=== PATIENT | male | born 1965 | race Caucasian/White ===

== ENCOUNTER 2019-01-17 23:55 | Inpatient (IN) | payer OTHER ==
[~2019-01-17] VITALS: Ht 172.7 cm; Wt 164.4 kg
[2019-01-17 23:59] VITALS: Ht 172.7 cm; Wt 164.4 kg
[2019-01-18 00:29] LABS: PLATELET COUNT 265 x10^3mcL (130-400)
[2019-01-18 00:39] LABS: CALCIUM 8.4 mg/dL (8.5-10.1); CARBON DIOXIDE 28.2 mmol/L (21-32); CHLORIDE SERUM 101 mmol/L (98-107); CREATININE SERUM 0.9 mg/dL (0.7-1.3); GFR1 > 60 mL/min; GLUCOSE SERUM 114 mg/dL (74-106); POTASSIUM SERUM 3.8 mmol/L (3.5-5.1); SODIUM SERUM 139 mmol/L (136-145)
[2019-01-18 00:44] LABS: ALBUMIN 3.4 g/dL (3.4-5.0); ALKALINE PHOSPHATASE 141 U/L (46-116); ALT/SGPT 182 U/L (16-63); AST/SGOT 62 U/L (15-37); BILIRUBIN TOTAL 1.4 mg/dL (0.20-1.00); LIPASE 232 IU/L (73-393); TOTAL PROTEIN, SERUM 7.2 g/dL (6.4-8.2)
[2019-01-18 00:56] LABS: RED CELL DISTRIBUTION WIDTH 18.1 % (11.5-14.5)
[2019-01-18] MEDS ORDERED: NOR10T PO (01:06)
[2019-01-18] MEDS ORDERED: DICLOFENAC SODI75 MG PO (01:06)
[2019-01-18] MEDS ORDERED: NEU300 PO (01:07)
[2019-01-18] MEDS ORDERED: GABAPENTIN100 M2 PO (01:08)
[2019-01-18 01:57] LABS: CHOLESTEROL/HDL RATIO 14.2; PHOSPHOROUS 3.4 mg/dL (2.5-4.9)
[2019-01-18 02:17] VITALS: BP 143/84
[2019-01-18 03:13] VITALS: BP 143/84
[2019-01-18 08:39] VITALS: BP 134/92
[2019-01-18 09:13] LABS: CALCIUM 8.6 mg/dL (8.5-10.1); CARBON DIOXIDE 27.3 mmol/L (21-32); CHLORIDE SERUM 104 mmol/L (98-107); CREATININE SERUM 0.8 mg/dL (0.7-1.3); GFR1 > 60 mL/min; GLUCOSE SERUM 100 mg/dL (74-106); POTASSIUM SERUM 4.3 mmol/L (3.5-5.1); SODIUM SERUM 139 mmol/L (136-145)
[2019-01-18 09:45] LABS: BASOPHIL % 0.8 % (0-2); PLATELET COUNT 262 x10^3mcL (130-400)
[2019-01-18 09:46] LABS: RED CELL DISTRIBUTION WIDTH 18.2 % (11.5-14.5)
[2019-01-18 12:27] VITALS: BP 135/93
[2019-01-18 17:22] LABS: microscopic required? NO
[2019-01-18 17:26] LABS: urine erythrocyte NEGATIVE (NEGATIVE)
[2019-01-18 17:34] LABS: AMPHETAMINE QUAL UR NONE DETECTED (See below)
[2019-01-18 17:57] VITALS: BP 138/84
[2019-01-18 21:21] VITALS: BP 133/74
[2019-01-19 05:41] VITALS: BP 124/63
[2019-01-19 06:40] LABS: BASOPHIL % 0.7 % (0-2); PLATELET COUNT 275 x10^3mcL (130-400)
[2019-01-19 06:48] LABS: CALCIUM 8.9 mg/dL (8.5-10.1); CARBON DIOXIDE 30.4 mmol/L (21-32); CHLORIDE SERUM 103 mmol/L (98-107); GFR1 > 60 mL/min; GLUCOSE SERUM 97 mg/dL (74-106); POTASSIUM SERUM 4.4 mmol/L (3.5-5.1); SODIUM SERUM 143 mmol/L (136-145)
[2019-01-19 07:13] LABS: RED CELL DISTRIBUTION WIDTH 17.8 % (11.5-14.5)
[2019-01-19 09:50] VITALS: BP 141/81
[2019-01-19 12:42] VITALS: BP 119/70
[2019-01-19 17:21] VITALS: BP 137/77
[2019-01-19 21:13] VITALS: BP 132/80
[2019-01-20 06:06] VITALS: BP 136/85
[2019-01-20 06:21] LABS: BASOPHIL % 0.9 % (0-2); PLATELET COUNT 293 x10^3mcL (130-400)
[2019-01-20 06:32] LABS: CALCIUM 8.8 mg/dL (8.5-10.1); CARBON DIOXIDE 27.6 mmol/L (21-32); CHLORIDE SERUM 103 mmol/L (98-107); CREATININE SERUM 0.9 mg/dL (0.7-1.3); GFR1 > 60 mL/min; GLUCOSE SERUM 110 mg/dL (74-106); SODIUM SERUM 141 mmol/L (136-145)
[2019-01-20 06:36] LABS: RED CELL DISTRIBUTION WIDTH 18.1 % (11.5-14.5)
[2019-01-20 09:04] VITALS: BP 147/95
[2019-01-20] MEDS ORDERED: COR6 PO (09:43)
[2019-01-20] MEDS ORDERED: LIPI20 PO (09:44)
[2019-01-20] MEDS ORDERED: ZES5 PO (09:44)
[2019-01-20] MEDS ORDERED: BAY PO (09:44)
[2019-01-20] MEDS ORDERED: LASIX40 MG PO (09:48)
[2019-01-20] MEDS ORDERED: IPRATROPIUM BROM3 M2 HHN (10:01)
[2019-01-20] MEDS ORDERED: LEVAQUIN750 MG PO (10:19)
[2019-01-20 12:49] VITALS: BP 128/81
[2019-01-20] MEDS ORDERED: COMBIVENT RESPI1 SP1 IH (13:04)
== END 2019-01-20 14:47 | disposition home or self-care (01) | DRG 194 ==
LOC: ED 23:55 → DU 01-18 01:23
PROVIDERS: Emergency Medicine; ADMIT General Practice
PROC: 5A09357 Assistance with Respiratory Ventilation, Less than 24 Consecutive Hours, Continuous Positive Airway Pressure (ICD-10-PCS; principal; 2019-01-18)
DX: I11.0 Hypertensive heart disease with heart failure (principal); J96.00 Acute respiratory failure, unspecified whether with hypoxia or hypercapnia; I21.A1 Myocardial infarction type 2; I50.41 Acute combined systolic (congestive) and diastolic (congestive) heart failure; I42.9 Cardiomyopathy, unspecified; E66.2 Morbid (severe) obesity with alveolar hypoventilation; Z68.42 Body mass index [BMI] 45.0-49.9, adult; F17.210 Nicotine dependence, cigarettes, uncomplicated; E78.5 Hyperlipidemia, unspecified; G89.29 Other chronic pain; M54.9 Dorsalgia, unspecified; Z71.3 Dietary counseling and surveillance
CPT/HCPCS: 83880; 85378; J0456; J0696; J1644; J1940; J2270; J2405; J7030; J7040; J7620; Q0163

== ENCOUNTER 2019-04-25 18:42 | Emergency (ER) | payer OTHER ==
[~2019-04-25] VITALS: Ht 167.6 cm; Wt 158.8 kg
[~2019-04-25 18:42] MED LIST: BAY PO; COMBIVENT RESPI1 SP1 IH; COR6 PO; DICLOFENAC SODI75 MG PO; GABAPENTIN100 M2 PO; IPRATROPIUM BROM3 M2 HHN; LASIX40 MG PO; LEVAQUIN750 MG PO; LIPI20 PO; NEU300 PO; NOR10T PO; ZES5 PO
[2019-04-25 18:48] VITALS: Ht 167.6 cm; Wt 158.8 kg
[2019-04-25 21:13] VITALS: BP 105/71
== END 2019-04-25 20:40 | disposition home or self-care (01) ==
LOC: ED 18:42
DX: M54.9 Dorsalgia, unspecified (principal); G89.29 Other chronic pain
CPT/HCPCS: J1885; J2270

== ENCOUNTER 2019-04-29 14:42 | Emergency (ER) | payer OTHER ==
[~2019-04-29] VITALS: Ht 170.2 cm; Wt 158.8 kg
[2019-04-29 14:48] VITALS: Ht 170.2 cm; Wt 158.8 kg
[2019-04-29 17:21] VITALS: BP 139/86
== END 2019-04-29 17:21 | disposition home or self-care (01) ==
LOC: ED 14:42
DX: G89.29 Other chronic pain (principal); M54.5 Low back pain
CPT/HCPCS: J1885; J2270